=== PATIENT | female | born 1960 | race African-American/Black ===

== ENCOUNTER 2016-07-09 16:00 | Inpatient (IN) | payer OTHER ==
--- NOTE | ~2016-07-09 | PN ---
Unit #: [id number] #: [id number] Patient: JORGE SALAS [id number] [facility] [address] [place] [address] [id number] MR#: [id number] NAME: JORGE SALAS ROOM: [facility] Age: 56 Sex: F Admission Date: 07/09/2016 : 1960 Attending Physician: Aurelio Bae M.D. Admitting Physician: Aurelio Bae M.D. Primary Care Physician: Generic Doctor Not In System [facility] PROGRESS NOTES DATE 07/12/2016 DISCUSSION The patient is angrily complaining today of abdominal pain and demands "something for my pain." I have explained to the patient that it appears that she is suffering from abdominal cramping and have told her to avail herself and prescribed Bentyl. She is also requesting something for sleep rather she is demanding something for sleep and will be started on Trazodone 50 mg at h.s. Dictated by... Aurelio Bae M.D. LUPILLO/jay TD: 07/12/2016 10:55 JOB #: [id number] [facility] PROGRESS NOTES Page 1 of 1 X Aurelio Bae MD X PROGRESS NOTE
--- NOTE | ~2016-07-09 | PA ---
Unit #: [id number] #: [id number] Patient: JORGE SALAS [id number] [facility] [address] [place] [address] [id number] I MR#: [id number] NAME: JORGE SALAS ROOM: [facility] Age: 56 Sex: F Admission Date: 07/09/2016 : 1960 Date of Assessment: 07/10/2016 Attending Physician: Aurelio Bae M.D. Admitting Physician: Aurelio Bae M.D. Primary Care Physician: Generic Doctor Not In System PSYCHIATRIC ASSESSMENT IDENTIFYING INFORMATION The patient is a 56-year-old female admitted with a history of abuse of alcohol and heroin. CHIEF COMPLAINT None given. INFORMANT(S) Patient, reliability is good. HISTORY OF PRESENT ILLNESS The patient is a 56-year-old female admitted with a history of heroin and alcohol dependence. The patient reports that she is drinking 24 ounces of beer and approximately 40 to 60 dollars worth of heroin on a daily basis. She is also drinking 2 shots of Bacardi dark lately. The patient states that she was suicidal. At the time of admission, we plan to overdose. The patient's mother in December 2015, and the patient has had worsening symptoms of depression since that time. She is currently on no prescribed psychotropic medications. The patient's suicide plan was to overdose on pills. The patient is currently prescribed trazodone and clonidine per her report, but these have not been verified. The patient had maintained sobriety for 7 years prior to her relapse in December of 2015 following the of her mother. She has been treated in the past at an inpatient facility in [place] in 2009 and had also been in [place] [facility] [place] in the past. When seen today, the patient is noted to be quite groggy, and attempts to arouse to interview the patient are unsuccessful. PAST PSYCHIATRIC HISTORY As above. PAST MEDICAL HISTORY The patient reports a history of hypertension. MEDICATIONS Trazodone and clonidine per her report though these have not been verified. ALLERGIES None reported. FAMILY HISTORY Noncontributory. Unit #: [id number] #: [id number] Patient: JORGE SALAS SOCIAL HISTORY The patient lives alone. She is presently unemployed. SUBSTANCE ABUSE HISTORY As noted previously. MENTAL STATUS EXAMINATION Examination at this time reveals the patient to be a very thin female appearing stated age. She is in no apparent physical distress at the time of examination. She is sleeping soundly and arouses only very briefly for interview. ASSETS AND LIABILITIES The patient's assets: Motivation for change. Liabilities: Lack of resources. DIAGNOSTIC IMPRESSION 1. Dysthymic disorder. 2. Opioid use disorder. 3. Alcohol use disorder. TREATMENT PLAN The patient remains hospitalized for safety and stabilization. Suicide precautions are in place. I will order Ensure with meals given the patient's degree of nutritional status. The patient will participate in appropriate order of milieu activities, and routine detoxification protocols for both opioids and alcohol have been initiated. ESTIMATED LENGTH OF STAY 5 to 7 days. Followup will take place through the auspices of community mental health resources and the chemical dependence intensive outpatient program provided by this facility. The patient may also be a candidate for residential chemical dependence treatment. Dictated by... Aurelio Bae M.D. LUPILLO/gerda TD: 07/10/2016 12:20 JOB #: [id number] PSYCHIATRIC ASSESSMENT Page 1 of 1 X Aurelio Bae MD X PSYCHIATRIC ASSESSMENT
--- NOTE | ~2016-07-09 | DS ---
Unit #: [id number] #: [id number] Patient: JORGE SALAS [id number] [facility] [address] [place] [address] [id number] MR#: [id number] NAME: JORGE ASLAS [place]OM: [facility] [place] [facility] [place] Age: 56 Sex: F Admission Date: 07/09/2016 : 1960 Discharge Date: 07/13/2016 Attending Physician: Aurelio Bae M.D. Primary Care Physician: Generic Doctor Not In System DISCHARGE SUMMARY REASON FOR ADMISSION The patient is a 56-year-old female, admitted with abuse of alcohol and heroin. HOSPITAL COURSE The patient was admitted to the [address] [place] [address] unit and placed on routine detoxification protocol to cover both alcohol and opiates. She did complain of some GI discomfort and further complained of significant abdominal pain which was thought to be cramping. It was recommended that she avail herself with prescribed p.r.n. During her stay in the hospital, the patient remained med seeking, and somewhat entitled and unpleasant in her interactions with this physician and staff. By 07/13/2016, the patient demanded discharge from the hospital after having been told that she would receive nothing stronger than Motrin for her complaints of low back pain. Discharge was ordered. FINAL DIAGNOSES Opioid use disorder; alcohol use disorder. DISPOSITION ON DISCHARGE The patient is discharged on no prescribed medications. FOLLOWUP Followup will take place through the auspices of community mental health resources. PROGNOSIS Her prognosis is considered fair. Dictated by... Aurelio Bae M.D. CB/aleksandra TD: 07/13/2016 17:20 JOB #: [id number] Unit #: [id number] #: [id number] Patient: JORGE SALAS DISCHARGE SUMMARY Page 1 of 1 X Aurelio Bae MD X DISCHARGE SUMMARY
--- NOTE | ~2016-07-09 | PN ---
Unit #: [id number] #: [id number] Patient: JORGE SALAS [id number] [facility] [address] [place] [address] [id number] I MR#: [id number] NAME: JORGE SALAS ROOM: [facility] Age: 56 Sex: F Admission Date: 07/09/2016 : 1960 Attending Physician: Aurelio Bae M.D. Admitting Physician: Aurelio Bae M.D. Primary Care Physician: Sandra Doctor Not In System [facility] PROGRESS NOTES DATE 07/11/2016 DISCUSSION The patient is abed resting comfortably today. Staff reports no management issues but reports that the patient's participation within the therapeutic milieu has been less optimal. Dictated by... Aurelio Bae M.D. CB/jay TD: 07/12/2016 02:10 JOB #: [id number] [facility] PROGRESS NOTES Page 1 of 1 X Aurelio Bae MD X PROGRESS NOTE
--- NOTE | ~2016-07-09 | HP ---
Unit #: [id number] #: [id number] Patient: MARITZAJORGE X HAYLEE FENTON APRN HISTORY AND PHYSICAL
== END 2016-07-13 13:30 | disposition home or self-care (01) | DRG 881 ==
LOC: P2S 18:13
PROC: HZ2ZZZZ Detoxification Services for Substance Abuse Treatment (ICD-10-PCS; principal; 2016-07-09)
DX: F34.1 Dysthymic disorder (principal); F11.20 Opioid dependence, uncomplicated; R45.851 Suicidal ideations; F10.20 Alcohol dependence, uncomplicated; F17.210 Nicotine dependence, cigarettes, uncomplicated; I10 Essential (primary) hypertension; E78.00 Pure hypercholesterolemia, unspecified